=== PATIENT | female | born 1930 | race African-American/Black ===

== ENCOUNTER 2018-12-16 14:09 | Emergency (ER) | payer MEDICARE ==
[~2018-12-16] VITALS: Ht 167.6 cm; Wt 65.0 kg
[2018-12-16] MEDS ORDERED: IBUPROFEN 600MG TABLET PO ONE (14:45)
[2018-12-16 15:30] LABS: BASOPHILS % 1.3 % (0.0-2.0); EOSINOPHILS % 3.3 % (0.0-5.0); HEMATOCRIT. 31.3 % (36.0-48.0); HEMOGLOBIN. 10.7 g/dL (12.0-16.0); LYMPHOCYTES % 29.1 % (20.0-50.0); MEAN CORPUSCULAR VOLUME 90.7 fL (81.0-99.0); MEAN PLATELET VOLUME 10.6 fl (7.4-10.4); MONOCYTES % 14.3 % (2.0-8.0); PLATELET 131 x1000/uL (130-400); RED BLOOD CELL COUNT 3.45 mill/uL (4.2-5.4); RED CELL DISTRIBUTION WIDTH 13.8 % (11.6-14.6)
[2018-12-16 15:31] LABS: CHLORIDE 101 mEq/L (98-107)
[2018-12-16 19:40] VITALS: BP 160/61
[2018-12-16] MEDS ORDERED: HYDROCODONE/ACETAMINOPHEN 5/325MG TABLET PO ONE (20:00)
[2018-12-16] MEDS ORDERED: TRAMADOL 50MG TABLET PO ONE (20:15)
[2018-12-16] MEDS ORDERED: IOHEXOL-350 100 ML BOTTLE ONE (20:32)
== END 2018-12-16 20:42 | disposition home or self-care (01) ==
LOC: ER 14:09
DX: M79.662 Pain in left lower leg (principal); F32.9 Major depressive disorder, single episode, unspecified; K21.9 Gastro-esophageal reflux disease without esophagitis; I10 Essential (primary) hypertension
CPT/HCPCS: 36415; 72191; 73706; 80053; 85025; 93971; 99284; Q9967

== ENCOUNTER 2021-02-12 01:15 | Emergency (ER) | payer MEDICARE, BC ==
[~2021-02-12] VITALS: Ht 162.6 cm; Wt 65.3 kg
[2021-02-12] MEDS ORDERED: ACETAMINOPHEN 325MG TABLET PO STA (03:04)
[2021-02-12 03:37] LABS: BASOPHILS % 0.8 % (0.0-2.0); HEMOGLOBIN. 10.9 g/dL (12.0-16.0); LYMPHOCYTES % 28.6 % (20.0-50.0); MEAN CORPUSCULAR HEMOGLOBIN 30.2 pg (28.0-32.0); MEAN CORPUSCULAR VOLUME 91.3 fL (81.0-99.0); MEAN PLATELET VOLUME 11.4 fl (7.4-10.4); MONOCYTES % 10.6 % (2.0-8.0); PLATELET 136 x1000/uL (130-400); RED BLOOD CELL COUNT 3.62 mill/uL (4.2-5.4); RED CELL DISTRIBUTION WIDTH 13.7 % (11.6-14.6)
[2021-02-12 03:41] LABS: PROTHROMBIN TIME 10.9 sec (9.6-11.0)
[2021-02-12 04:04] LABS: CHLORIDE 106 mEq/L (98-107)
[2021-02-12] MEDS ORDERED: SODIUM CHLORIDE 0.9% 1,000 ML IV ONE (05:00)
[2021-02-12] MEDS ORDERED: ACET650T37 MT (05:57)
[2021-02-12 06:32] VITALS: BP 122/59
== END 2021-02-12 06:33 | disposition home or self-care (01) ==
LOC: ER 01:15
DX: R51.9 Headache, unspecified (principal); I10 Essential (primary) hypertension; E11.9 Type 2 diabetes mellitus without complications
CPT/HCPCS: 36415; 70450; 80053; 85025; 85610; 99285; J7030